=== PATIENT | female | born 1970 | race African-American/Black ===

== ENCOUNTER 2022-09-01 18:59 | Emergency (ER) | payer OTHER ==
[~2022-09-01] VITALS: Ht 172.7 cm; Wt 56.2 kg
[2022-09-01] MEDS ORDERED: IV NORMAL SALINE 1000 ML BAG IV ONE (20:00)
[2022-09-01 20:26] LABS: HEMATOCRIT 39.4 % (31.2-41.9); MEAN CORPUSCULAR VOLUME 91.3 fL (75.5-95.3); PLATELET COUNT (AUTO) 270 K/uL (179-408)
[2022-09-01 20:53] LABS: ALANINE AMINOTRANSFERASE 30 U/L (14-59); ALKALINE PHOSPHATASE 53 U/L (50-136); ASPARTATE AMINOTRANSFERASE 21 U/L (15-37); BILIRUBIN,DIRECT 0.2 mg/dL (0.0-0.2); BILIRUBIN,TOTAL 0.9 mg/dL (0.2-1.0); TOTAL PROTEIN, SERUM 7.9 g/dL (6.4-8.2)
[2022-09-01] MEDS ORDERED: CYANOCOBALAMIN 1000 MCG/ML VIAL IM ONE (22:30)
[2022-09-01] MEDS ORDERED: CYANOCOBALAMIN 1000 MCG/ML VIAL ONE (23:00)
--- NOTE | 2022-09-01 23:57 | NUR ---
Late entry: Patient came in via ambulance assisted to room 1 bed 1 patient put on monitor per doctor's order vital signs 131/78 - 72- 20 -100% - 97.5. EKG done for MD review. patient was medicated as per order. Hepmike removed discharge instructions given patient verbalized understanding remains stable discharge home with family.
[2022-09-02 00:08] VITALS: BP 131/78
[2022-09-02 04:46] LABS: CREATININE 0.9 mg/dL (0.6-1.3); POTASSIUM 4.5 mmol/L (3.5-5.1)
== END 2022-09-02 00:08 | disposition home or self-care (01) ==
LOC: ER 19:02
DX: R55 Syncope and collapse (principal); R94.31 Abnormal electrocardiogram [ECG] [EKG]; I25.10 Atherosclerotic heart disease of native coronary artery without angina pectoris; Z95.1 Presence of aortocoronary bypass graft
CPT/HCPCS: 99285; 71045; 80076; 82607; 83735; 85025; 85379; 84484; 36415 ×2; 93005; 96372; 83605; 80048; J3420; A4663